=== PATIENT | male | born 1955 | race Caucasian/White ===

== ENCOUNTER 2021-09-05 05:04 | Observation (INO) ==
[2021-09-05] MEDS ORDERED: NITROGLYCERIN SL 0.4 MG/TAB TAB SL STA (05:20)
--- NOTE | 2021-09-05 05:26 | Emergency Department Note ---
Impression & Plan Left-sided chest pain ED Provider Note Name: LACY [id number] GAMALIEL Age: 65 Sex: M Arrives Via: Ambulance Informant: Patient, EMS ED Provider: Gareth Matos MD Chief Complaint: Left Chest Pain Impression: As per impressions above Medical Decision Makin-year-old prisoner arrives for evaluation of left-sided chest pain patient with extensive past medical history primarily of CVA and type 2 diabetes. He notes awakening with left-sided chest pain this morning and thus brought him to ER for evaluation he is uncomfortable with left-sided chest pain which has some vague tenderness to palpation and also he notes worse with deep inspiration. Initial EKG without acute ischemic findings due to some poor baseline this was repeated and is unremarkable. He was given sublingual nitro with rapid drop in his blood pressure to the 70s. Complaining of increasing shortness of breath at the same time now and worsening of his chest pain. Immediately started liter normal saline no blood pressure remains low patient continues to plan of worsening shortness of breath. In the setting of acute hypotension and worsening chest pain/shortness of breath I do feel the getting CTA is indicated especially given he has been sitting in a detention cell for the last week and a half. Fortunately CTA is without dissection or PE. Patient is allergic to aspirin and thus will hold off on giving him the standard 324 mg aspirin. Given his history of diabetes, CVA and what appears to be peripheral vascular disease I do feel the cardiac rule out would be indicated which a hospitalist was consulted for. Prior Medical Record and Triage/Nursing Notes reviewed by Me Additional history obtained from custodial records Differentials:Cardiac ischemia, aortic dissection, pulmonary embolism, pneumothorax, pneumonia, pericarditis, myocarditis, esophageal rupture, GERD, cholecystitis, pancreatitis, musculoskeletal, as well as other pathologies. Vital Signs: reviewed and remarkable for no significant abnormalities Interventions: Sublingual nitroglycerin, 1 L normal saline bolus, fentanyl 5 mcg IV Labs:Reviewed and remarkable for no significant abnormalities Imagin view chest x-ray reviewed by me without any acute findings. CTA of the chest as per radiologist read below EKG:Per My Interpretation: Indication Chest pain: NSR 65 bpm, qtc 459. No Ectopy. No Ischemia. No previous EKG for comparison Cardiac/Tele Monitoring: Cardiac Monitoring: An Order was placed for continuous cardiac monitoring. The monitor shows a rate of 65 with a normal sinus rhythm. Consults:Dr Richi Mattson Hospitalist Plan: Disposition:Hospitalization. Condition: Good History of Present Illness:69-year-old incarcerated male arrives for evaluation of chest pains. Patient states that he awoke around 3 AM with left-sided dull chest pain. He does state that the pain is worse with movement and palpation. He denies any shortness of breath, syncope, palpitations, lightheadedness. Jessenia ent states that pain radiates down the left arm to the elbow. Patient denies history of cardiac disease. He states he has had multiple strokes before. He does not take aspirin as he is allergic to it. He does have a history of type 2 diabetes, strokes and states he lost his left leg due to an infection after a fracture. Patient has had no medications prior to arrival. Patient does not know if he has previously had a cardiac work-up. Patient denies any abdominal pain, nausea, vomiting, back pain, headache, neck pain, shortness of breath, palpitations, syncope, leg swelling, calf pain, urinary symptoms, bowel symptoms, bleeding, bruising nor other symptoms. ROS: See above HPI for pertinent positives & negatives. A total of 10 systems reviewed and were otherwise negative. Past Medical History:Diabetes, CVA Past Surgical History:Left lower leg amputation Family History:States mother of NH around 60 years old Social History:Patient currently incarcerated at [facility] detention, denies tobacco use Home Medications:See Below Allergies:Penicillin, aspirin Vitals:Blood Pressure: 144/77, Pulse 67, RR 18, T 37.1C, O2 93% on RA Physical Exam: GENERAL: Patient is well appearing and in no acute distress. EYES: No scleral icterus, unremarkable pupils. ENT: Mucous membranes moist, no nasal congestion. NECK: No masses appreciated, nomeningismus, trachea is midline. CHEST: TTP over left lateral chest RESPIRATORY: No dyspnea. Clear to auscultation and equal bilaterally. No wheeze, no rhonchi. CARDIOVASCULAR: Regular rate and rhythm.No murmurs, rubs, gallops appreciated. GASTROINTESTINAL: Abdomen soft, non-tender, no peritonitis.Bowel sounds positive.No masses appreciated. BACK: No midline tenderness, no CVA tenderness EXTREMITIES: Left lower leg amputation below knee. Normal motion all extremities, no cyanosis, no edema. NEUROLOGIC: Alert and oriented, no acute motor or sensory deficits, no focal weakness, cranial nerves grossly intact. SKIN: No rash, no jaundice, no diaphoresis. PSYCH: Appropriate GCS: 15 ED Course: Times/Reassessments: Patient given sublingual nitro with resultant significant hypotension which improved with fluids and some time. He still had some left-s ided chest pain thus was given 50 mcg IV fentanyl and appeared much more comfortable. He is agreeable to hospitalization for cardiac rule out. Gareth Matos MD Past Med/Surg History Social History Smoking Status: Current every day smoker Tobacco Type: Cigarettes Feels Safe at Home: Yes Allergies Allergies Allergy/AdvReac Type Severity Reaction Status Date / Time aspirin AdvReac Unknown Unverified 09/05/21 08:10 Home Meds Home Medications Medication Instructions Recorded Confirmed No Known Home Medications 09/05/21 09/05/21 Results & Data (ED) Vital Signs Vital Signs - 24 hr 09/05/21 05:09 09/05/21 06:03 09/05/21 06:04 Temperature 37.1 C Temperature Source Oral Pulse Rate 67 Pulse Rate [Right Finger] 67 68 Respiratory Rate 18 18 18 Respiratory Effort / Characteristics Non-Labored Spontaneous Non-Labored Spontaneous Non-Labored Spontaneous Respiratory Depth Normal Normal Normal Respiratory Pattern Regular Regular Regular Blood Pressure 144/77 H Blood Pressure [Right Arm] 75/53 L 76/52 L Blood Pressure Mean 99 Blood Pressure Mean [Right Arm] 60 60 Blood Pressure Position Sitting Blood Pressure Position [Right Arm] Sitting Sitting Pulse Oximetry 93 95 93 Oxygen Delivery Method Room Air Room Air Room Air Oxygen Flow Rate 94 Sepsis Recent Fever Within 48 Hours No Sepsis New/Unexplained Change in Mental Status No Sepsis Action Taken by Nursing No Action Required 09/05/21 06:07 09/05/21 06:13 09/05/21 07:25 Temperature Temperature Source Pulse Rate Pulse Rate [Right Finger] 68 66 68 Respiratory Rate 18 18 28 H Respiratory Effort / Characteristics Non-Labored Spontaneous Non-Labored Spontaneous Non-Labored Respiratory Depth Normal Normal Normal Respiratory Pattern Regular Regular Blood Pressure Blood Pressure [Right Arm] 82/56 L 115/76 156/84 H Blood Pressure Mean Blood Pressure Mean [Right Arm] 64 89 108 Blood Pressure Position Blood Pressure Position [Right Arm] Sitting Lying Pulse Oximetry 94 96 98 Oxygen Delivery Method Room Air Room Air Room Air Oxygen Flow Rate Sepsis Recent Fever Within 48 Hours Sepsis New/Unexplained Change in Mental Status Sepsis Action Taken by Nursing Laboratory Data Result diagrams: 09/05/21 05:32 09/05/21 05:32 Lab Results 09/05/21 09/05/21 09/05/21 Range/Units 05:32 05:32 05:32 WBC 6.16 (4.8-10.8) K/uL RBC 4.88 (4.7-6.1) M/uL Hgb 14.1 (14.0-18.0) g/dL Hct 43.0 (42-52) % MCV 88.1 (80-100) fL MCH 28.9 (25-34) pg MCHC 32.8 (32-36) g/dL RDW Std Deviation 43.8 (36.4-46.3) fL RDW Coeff of Shavonne 13.5 (11.5-14.5) % Plt Count 281 (130-400) K/uL MPV 10.8 H (7.4-10.4) fL Immature Gran % (Auto) 0.0 % Neut % (Auto) 49.7 % Lymph % (Auto) 36.0 % Mclean % (Auto) 9.1 % Eos % (Auto) 4.9 % Baso % (Auto) 0.3 % Neut # (Auto) 3.06 (1.4-6.5) K/uL Lymph # (Auto) 2.22 (1.2-3.4) K/uL Mclean # (Auto) 0.56 (0.11-0.59) K/uL Eos # (Auto) 0.30 (0-0.5) K/uL Baso # (Auto) 0.02 (0-0.2) K/uL Immature Gran # (Auto) 0.00 (0.00-0.02) K/uL Sodium 137 (136-145) mmol/L Potassium 4.2 (3.5-5.1) mmol/L Chloride 102 (98-107) mmol/L Carbon Dioxide 29 (21-32) mmol/L Anion Gap 7.0 (3-11) BUN 20 H (7-18) mg/dl Creatinine 0.86 (0.6-1.4) mg/dl Est Cr Clr Drug Dosing 93.2 ml/min Est GFR ( Amer) 107.0 ml/min Est GFR (Non-Af Amer) 92.3 ml/min BUN/Creatinine Ratio 23.7 H (10-20) Glucose 250 H (70-99) mg/dl Calcium 9.0 (8.5-10.1) mg/dl Troponin I < 0.015 (0-0.045) ng/ml SARS-CoV-2, RNA, NAAT NEGATIVE (NEGATIVE) Administered Medications Discontinued Medications Fentanyl Citrate (Fentanyl Citrate 100 Mcg/2 Ml Vial) 50 mcg IV NOW STA Stop: 09/05/21 06:44 Last Admin: 09/05/21 06:49 Dose: 50 mcg Documented by: [id number] Sodium Chloride (Nss 1000ml) 1,000 mls @ 999 mls/hr IV .Q1H1M ONE Stop: 09/05/21 07:06 Last Infusion: 09/05/21 07:27 Dose: 0 mls/hr Documented by: [id number] Admin: 09/05/21 06:12 Dose: 999 mls/hr Documented by: [id number] Ioversol (Optiray 320 125ml) 120 ml IV ONCE ONE Stop: 09/05/21 06:54 Last Admin: 09/05/21 06:53 Dose: 120 ml Documented by: [id number] Nitroglycerin (Nitroglycerin Sl 0.4 Mg/Tab Tab) 0.4 mg SL NOW STA Stop: 09/05/21 05:21 Last Admin: 09/05/21 05:53 Dose: 0.4 mg Documented by: [id number] Imaging Data Radiologist's Impression: Chest X-Ray 09/05/21 05:20 XR chest 1V portable CLINICAL HISTORY: Left-sided chest pain. COMPARISON STUDY: No previous studies for comparison. FINDINGS: Lung volumes are normal. Lungs are clear. There is no pneumothorax or pleural effusion. Cardiac size is normal. Mediastinal contours are normal. There is no evidence for pulmonary edema. IMPRESSION: No acute cardiopulmonary findings. ACT 112: Negative or not required by law. Electronically signed by: Vic Florence M.D. 09/05/2021 6:52 AM Chest CTA 09/05/21 06:06 CHEST CTA for PULMONARY ARTERIES CT DOSE: 484.39 mGy.cm HISTORY: Atypical chest pain. Shortness of breath. TECHNIQUE: Multiaxial CT images of the chest were performed following the intravenous administration of contrast to evaluate the pulmonary arteries. Maximal intensity projection images were also obtained. A dose lowering t echnique was utilized adhering to the principles of ALARA. COMPARISON STUDY: None. FINDINGS: Nodular thickening of the bilateral adrenal glands most pronounced on the left which measures up to 1.3 cm in thickness. This could represent age- related adrenal hyperplasia or an underlying benign adenoma. Partially visualized 1.5 cm slightly hyperdense exophytic left renal lesion. This is indeterminate but favors a hyperdense cyst. A solid renal mass could also have a similar appearance. There are few small hypodense lesions within the liver with the majority measuring subcentimeter in short axis diameter and therefore too small to characterize. There is also a 1.8 cm hypodense lesion within the caudate lobe which may represent discontinuous peripheral nodular enhancement. Therefore, this favors a hemangioma but is incompletely characterized on this single phase study. Thyroid gland enhances normally. Scattered subcentimeter mediastinal and hilar lymph nodes do not meet CT criteria for pathologic involvement. Normal caliber esophagus. No pleural or pericardial effusions. The heart is borderline enlarged. Normal caliber thoracic aorta with no evidence for dissection. No filling defects within the pulmonary arteries to suggest a pulmonary embolus. No suspicious lytic or blastic osseous lesions. The central airways are patent. There is mild emphysema with a few scattered small bilateral blebs. The largest within the right lower lobe measures 2 cm. Mild dependent changes seen at the lung bases. Otherwise, no focal lung consolidations to suggest pneumonia. A 6 x 4 mm subpleural nodule along the right minor fissure on image 158. IMPRESSION: 1. No evidence for pulmonary embolus. 2. Mild emphysema. 3. No focal lung consolidations to suggest pneumonia. 4. A 6 x 4 mm subpleural nodule along the right minor fissure. This is likely benign. However, follow-up recommended as detailed below. 5. Partially visualized 1.5 cm slightly hyperdense exophytic left renal lesion. This favors a hyperdense cyst. A solid renal mass is considered less likely but not entirely excluded. Therefore, follow-up nonemergent renal ultrasound recommended for further evaluation. 6. Additional findings as described above. Please refer to below summary of Fleischner criteria recommendations for follow- up of incidental CT nodules (Kenny Hernandez, Guidelines for management of small pulmonary nodules detected on CT scans: A statement from the Fleischner Society, Radiology 237: [phone].) SOLID NODULES Solitary nodule size: <6 mm * Low risk patients: no follow-up needed * high risk patients: optional CT at 12 months Solitary nodule size: 6-8 mm * Low risk patients: follow-up at 6-12 months, then consider further follow-up at 18-24 months * high risk patients: initial follow-up CT at 6-12 months and then at 18-24 months if no change Solitary nodule size: >8 mm * either low or high risk patients - consider follow-up CT at 3 months, and/or CT-PET, and/or biopsy Multiple nodules size: <6 mm * Low risk patients: no routine follow-up * high risk patients: optional CT at 12 months Multiple nodules size: 6-8 mm * Low risk patients: follow-up at 3-6 months, then consider further follow-up at 18-24 months * high risk patients: follow-up at 3-6 months, then at 18-24 months if no change Multiple nodules size: >8 mm * Low risk patients: follow-up at 3-6 months, then consider further follow-up at 18-24 months * high risk patients: follow-up at 3-6 months, then at 18-24 months if no change Note: newly detected indeterminate nodule in persons 35 years of age or older. * Low risk patients: minimal or absent history of smoking and/or other known risk factors * high risk patients: history of smoking or of other known risk factors (e.g. first degree relative with lung cancer, or exposure to asbestos, radon, uranium) * if a nodule up to 8 mm is partly solid or is ground glass further follow-up is required after 24 months to exclude possible slow growing adenocarcinoma (PASTORA) SUBSOLID NODULES Solitary pure ground-glass nodule * nodule size <6 mm - no CT follow-up required * nodule size >=6 mm - follow-up CT at 6-12 months, then every 2 years until 5 years Solitary part-solid nodule * nodule size <6 mm - no CT follow-up required * nodule size >=6 mm - follow-up CT at 3-6 months. If unchanged, and solid component remains <6 mm, then annual follow-up for 5 years Multiple subsolid nodules * nodule size <6 mm - follow-up CT at 3-6 months, consider further follow-up at 2 and 4 years if stable * nodule size >=6 mm - follow-up CT at 3-6 months, subsequent management based on the most suspicious nodule(s) ACT 112: Positive. There are findings on this exam that require communication between the performing entity and the patient following Patient Test Result Information Act ([place] Act 112) guidelines. Electronically signed by: Froylan Sharpe M.D. 09/05/2021 7:46 AM Discharge Plan Visit Data Chief Complaint: Chest Pain Stated Complaint: CHEST PAIN, LEFT ARM PAIN ED Provider: Gareth Matos Discharge Problem: Left-sided chest pain Forms Stand Alone Forms: [facility] Prescriptions Prescriptions: No Action No Known Home Medications RF: 0 Referrals Referrals: [facility] [Primary Care Provider] -
[2021-09-05 05:49] LABS: Basophils # (auto) 0.02 K/uL (0-0.2); Basophils % (auto) 0.3 %; Eosinophils % (auto) 4.9 %; Hemoglobin 14.1 g/dL (14.0-18.0); Lymphocytes # (auto) 2.22 K/uL (1.2-3.4); Mean Corpuscular Hemoglobin 28.9 pg (25-34); Mean Corpuscular Hgb Conc 32.8 g/dL (32-36); Mean Corpuscular Volume 88.1 fL (80-100); Mean Platelet Volume 10.8 fL (7.4-10.4); Monocytes # (auto) 0.56 K/uL (0.11-0.59); Monocytes % (auto) 9.1 %; Neutrophils # (auto) 3.06 K/uL (1.4-6.5); Neutrophils % (auto) 49.7 %; Platelet Count 281 K/uL (130-400); RDW Coefficient of Variation 13.5 % (11.5-14.5); RDW Standard Deviation 43.8 fL (36.4-46.3); Red Blood Count 4.88 M/uL (4.7-6.1); White Blood Count 6.16 K/uL (4.8-10.8)
[2021-09-05] MEDS ORDERED: SODIUM CHLORIDE 0.9% 1000ML 1,000 ML IV ONE (06:06)
[2021-09-05 06:10] LABS: BUN Creatinine Ratio 23.7 (10-20); Blood Urea Nitrogen 20 mg/dl (7-18); Carbon Dioxide 29 mmol/L (21-32); Chloride 102 mmol/L (98-107); Creatinine Clr Calc Pharmacy 93.2 ml/min; Est GFR (Non-African American) 92.3 ml/min; Glucose 250 mg/dl (70-99); Potassium 4.2 mmol/L (3.5-5.1); Sodium 137 mmol/L (136-145)
[2021-09-05 06:15] LABS: Troponin I < 0.015 ng/ml (0-0.045)
[2021-09-05] MEDS ORDERED: fentaNYL citrate 100 MCG/2 ML VIAL IV STA (06:43)
[2021-09-05] MEDS ORDERED: OPTIRAY 320 125ml IV ONE (06:53)
--- NOTE | 2021-09-05 06:53 | XRay Report ---
XR chest 1V portable CLINICAL HISTORY: Left-sided chest pain. COMPARISON STUDY: No previous studies for comparison. FINDINGS: Lung volumes are normal. Lungs are clear. There is no pneumothorax or pleural effusion. Car diac size is normal. Mediastinal contours are normal. There is no evidence for pulmonary edema. IMPRESSION: No acute cardiopulmonary findings. ACT 112: Negative or not required by law. Electronically signed by: Vic Florence M.D. 09/05/2021 6:52 AM
--- NOTE | 2021-09-05 07:47 | CT Scan Report ---
CHEST CTA for PULMONARY ARTERIES CT DOSE: 484.39 mGy.cm HISTORY: Atypical chest pain. Shortness of breath. TECHNIQUE: Multiaxial CT images of the chest were performed following the intravenous administration of contrast to evaluate the pulmonary arteries. Maximal intensity projection images were also obtaine d. A dose lowering technique was utilized adhering to the principles of ALARA. COMPARISON STUDY: None. FINDINGS: Nodular thickening of the bilateral adrenal glands most pronounced on the left which measur es up to 1.3 cm in thickness. This could represent age-related adrenal hyperplasia or an underlying b enign adenoma. Partially visualized 1.5 cm slightly hyperdense exophytic left renal lesion. This is i ndeterminate but favors a hyperdense cyst. A solid renal mass could also have a similar appearance. T here are few small hypodense lesions within the liver with the majority measuring subcentimeter in sh ort axis diameter and therefore too small to characterize. There is also a 1.8 cm hypodense lesion wi thin the caudate lobe which may represent discontinuous peripheral nodular enhancement. Therefore, th is favors a hemangioma but is incompletely characterized on this single phase study. Thyroid gland en hances normally. Scattered subcentimeter mediastinal and hilar lymph nodes do not meet CT criteria fo r pathologic involvement. Normal caliber esophagus. No pleural or pericardial effusions. The heart is borderline enlarged. Normal caliber thoracic aorta with no evidence for dissection. No filling defec ts within the pulmonary arteries to suggest a pulmonary embolus. No suspicious lytic or blastic osseo us lesions. The central airways are patent. There is mild emphysema with a few scattered small bilate ral blebs. The largest within the right lower lobe measures 2 cm. Mild dependent changes seen at the lung bases. Otherwise, no focal lung consolidations to suggest pneumonia. A 6 x 4 mm subpleural nodul e along the right minor fissure on image 158. IMPRESSION: 1. No evidence for pulmonary embolus. 2. Mild emphysema. 3. No focal lung consolidations to suggest pneumonia. 4. A 6 x 4 mm subpleural nodule along the right minor fissure. This is likely benign. However, follow -up recommended as detailed below. 5. Partially visualized 1.5 cm slightly hyperdense exophytic left renal lesion. This favors a hyperde nse cyst. A solid renal mass is considered less likely but not entirely excluded. Therefore, follow-u p nonemergent renal ultrasound recommended for further evaluation. 6. Additional findings as described above. Please refer to below summary of Fleischner criteria recommendations for follow-up of incidental CT n odules (Kenny Hernandez, Guidelines for management of small pulmonary nodules detected on CT scans: A amilcar diaz from the Fleischner Society, Radiology 237: [phone].) SOLID NODULES Solitary nodule size: <6 mm * Low risk patients: no follow-up needed * high risk patients: optional CT at 12 months Solitary nodule size: 6-8 mm * Low risk patients: follow-up at 6-12 months, then consider further follow-up at 18-24 months * high risk patients: initial follow-up CT at 6-12 months and then at 18-24 months if no change Solitary nodule size: >8 mm * either low or high risk patients - consider follow-up CT at 3 months, and/or CT-PET, and/or biopsy Multiple nodules size: <6 mm * Low risk patients: no routine follow-up * high risk patients: optional CT at 12 months Multiple nodules size: 6-8 mm * Low risk patients: follow-up at 3-6 months, then consider further follow-up at 18-24 months * high risk patients: follow-up at 3-6 months, then at 18-24 months if no change Multiple nodules size: >8 mm * Low risk patients: follow-up at 3-6 months, then consider further follow-up at 18-24 months * high risk patients: follow-up at 3-6 months, then at 18-24 months if no change Note: newly detected indeterminate nodule in persons 35 years of age or older. * Low risk patients: minimal or absent history of smoking and/or other known risk factors * high risk patients: history of smoking or of other known risk factors (e.g. first degree relative with lung cancer, or exposure to asbestos, radon, uranium) * if a nodule up to 8 mm is partly solid or is ground glass further follow-up is required after 24 m onths to exclude possible slow growing adenocarcinoma (PASTORA) SUBSOLID NODULES Solitary pure ground-glass nodule * nodule size <6 mm - no CT follow-up required * nodule size >=6 mm - follow-up CT at 6-12 months, then every 2 years until 5 years Solitary part-solid nodule * nodule size <6 mm - no CT follow-up required * nodule size >=6 mm - follow-up CT at 3-6 months. If unchanged, and solid component remains <6 mm, then annual follow-up for 5 years Multiple subsolid nodules * nodule size <6 mm - follow-up CT at 3-6 months, consider further follow-up at 2 and 4 years if sta ble * nodule size >=6 mm - follow-up CT at 3-6 months, subsequent management based on the most suspiciou s nodule(s) ACT 112: Positive. There are findings on this exam that require communication between the performing entity and the patient following Patient Test Result Information Act ([place] Act 112) guidelines. Electronically signed by: Froylan Sharpe M.D. 09/05/2021 7:46 AM
--- NOTE | 2021-09-05 07:51 | Electrocardiogram Report ---
Test Reason : Blood Pressure : / mmHG Vent. Rate : 065 BPM Atrial Rate : 065 BPM P-R Int : 154 ms QRS Dur : 102 ms QT Int : 454 ms P-R-T Axes : 013 -62 -03 degrees QTc Int : 472 ms Normal sinus rhythm Left axis deviation Incomplete right bundle branch block Abnormal ECG No previous ECGs available Confirmed by Samuel Zamorano ([id number]) on 09/05/2021 7:51:08 AM Referred By: [facility] Confirmed By:Gabriel Zamorano
--- NOTE | 2021-09-05 07:52 | Electrocardiogram Report ---
Test Reason : Blood Pressure : / mmHG Vent. Rate : 065 BPM Atrial Rate : 065 BPM P-R Int : 150 ms QRS Dur : 102 ms QT Int : 442 ms P-R-T Axes : 024 -65 071 degrees QTc Int : 459 ms Normal sinus rhythm Left anterior fascicular block Abnormal ECG When compared with ECG of 05-SEP-2021 05:13, (unconfirmed) Non-specific change in ST segment in Inferior leads Confirmed by Samuel Zamorano ([id number]) on 09/05/2021 7:51:58 AM Referred By: [facility] Confirmed By:Gabriel Zamorano
--- NOTE | 2021-09-05 09:34 | History & Physical Report ---
Date of Service September 05, 2021 Assessment & Plan (1) Left-sided chest pain: Plan: 65 y/o male with atypical left-sided chest pain x 6 hours. Developed hypotension with nitro. - Admit to monitor on telemetry - Serial troponin - Repeat EKG prn change in chest pain - Check ECHO - Consult cardiology for additional recommendations (2) Cellulitis of left lower extremity: Plan: - Continue Bactrim as pt was taking prior to admission (3) Type 2 diabetes mellitus: Plan: - Accuchecks - Insulin sliding scale - A1c in AM - Currently NPO but once able to eat will give diabetic diet (4) GERD (gastroesophageal reflux disease): Plan: - Continue pantoprazole as taken prior to admission (5) Dyslipidemia: Plan: - Continue statin Plan: Pt seen and discussed with attending physician, Dr. Merida. Plan of care discussed and as outlined above. Christine Brandt PA-C History of Present Illness Chief Complaint: Chest Pain Primary Care Provider: [facility] This is a 65 y/o male with a PMH of insulin-requiring DM2, dyslipidemia, GERD, and prior left BKA who presented from [facility] earlier this morning with left-sided chest pain. The pt reports the abrupt onset of sharp left chest pain radiating through to his left scapula described as "like someone is punching me." He has some associated nausea and feels warm but no documented fevers. Denies cough, shortness of breathing, ANGUIANO or dizziness. He does not recall having this chest pain previously. He reports a stress test "many years ago" that he thinks was normal. He does not recall a prior cardiac cath. He denies prior hx of ND but does report multiple "mini-strokes" previously as well as a hx of Guthrie Palsy, though denies hx of Lyme Disease. He is currently on Bactrim due to a wound on the left BKA area where the prosthesis was rubbing. [facility] allowing [facility] to use a wheelchair instead of wearing the prosthesis, which pt reports is helping the area heal. Pt received sublingual nitro in the ED with subsequent hypotension (SBP in the 70s) - given IVF with stabilization of BP. History of aspirin allergy with unknown reaction so not given. Allergies Allergy/AdvReac Type Severity Reaction Status Date / Time Penicillins Allergy Unknown Verified 09/05/21 09:34 aspirin AdvReac Unknown Unverified 09/05/21 08:10 Home Medications Medication Instructions Recorded Confirmed Type albuterol sulfate 2.5 mg INHALATION QID PRN 09/05/21 09/05/21 History atorvastatin 40 mg tablet 40 mg PO DAILY 09/05/21 09/05/21 History insulin human U-100 NPH-regulr 18 unit SUBCUT BID 09/05/21 09/05/21 History 70-30 mix 100 unit/mL subcutaneous susp pantoprazole 40 mg tablet,delayed 40 mg PO DAILY 09/05/21 09/05/21 History release sulfamethoxazole 800 1 tab PO BID 09/05/21 09/05/21 History mg-trimethoprim 160 mg tablet (Bactrim DS) Past Med/Surg History Medical History (Updated 09/05/21 @ 09:44 by Dina Brandt PA-C) Dyslipidemia GERD (gastroesophageal reflux disease) Type 2 diabetes mellitus Surgical History (Updated 09/05/21 @ 09:28 by Dina Brandt PA-C) History of below knee amputation Social History Smoking Status: Current every day smoker Tobacco Type: Cigarettes Feels Safe at Home: Yes Review of Systems Review of Systems: All systems reviewed & are unremarkable except as noted in HPI & below Constitutional: + fatigue; no fever, no chills and no sweats Eyes: no worsening vision Ear, Nose, Mouth, Throat: no nasal congestion, no nasal discharge and no sore throat Respiratory: no cough, no dyspnea and no wheezing Cardiovascular: as per Subjective / HPI; no palpitations, no syncope and no edema Gastrointestinal: + nausea; no abdominal pain, no heartburn, no vomiting and no diarrhea/loose stools Genitourinary: no dysuria or no urinary frequency Musculoskeletal: as per Subjective / HPI Integumentary: wound left BKA Neurologic: no seizure-like activity, no dizziness and no headache(s) Physical Exam Constitutional: well developed and well nourished; no acute distress Eyes: PERRL, conjunctivae normal, anicteric sclerae ENMT: external ear and nose normal, oropharynx normal Neck: trachea midline Respiratory: no respiratory distress and does not use accessory muscles Auscultation: lungs clear to auscultation bilaterally; no rales, no rhonchi and no wheezes Cardiovascular: Rate/Rhythm: regular rate and regular rhythm Heart Sounds: no murmur Vessels: radial pulses present Extremities: no edema left chest wall with mild tenderness, left scapular area with moderate tenderness Gastrointestinal (Abdomen): Inspection/Auscultation: normal bowel sounds; abdomen not distended Percussion/Palpation: abdomen soft; abdomen nontender Musculoskeletal: Head/Neck/Chest: normocephalic, head atraumatic and neck supple Skin: left BKA site with band-aid C/D/I Neurologic: moves all extremities; no focal motor deficits Psychiatric: A+Ox3, euthymic affect Results & Data Results & Data ([facility]) Vital Signs (Past 12 Hours) Vital Signs Temp Pulse Pulse Resp BP BP Pulse Ox 09/05/21 07:25 68 28 H 156/84 H 98 09/05/21 06:13 66 18 115/76 96 09/05/21 06:07 68 18 82/56 L 94 09/05/21 06:04 68 18 76/52 L 93 09/05/21 06:03 67 18 75/53 L 95 09/05/21 05:09 37.1 C 67 18 144/77 H 93 Laboratory Results Laboratory Results - last 24 hr 09/05/21 09/05/21 09/05/21 05:32 05:32 05:32 WBC 6.16 RBC 4.88 Hgb 14.1 Hct 43.0 MCV 88.1 MCH 28.9 MCHC 32.8 RDW Std Deviation 43.8 RDW Coeff of Shavonne 13.5 Plt Count 281 MPV 10.8 H Immature Gran % (Auto) 0.0 Neut % (Auto) 49.7 Lymph % (Auto) 36.0 [place] % (Auto) 9.1 Eos % (Auto) 4.9 Baso % (Auto) 0.3 Neut # (Auto) 3.06 Lymph # (Auto) 2.22 [place] # (Auto) 0.56 Eos # (Auto) 0.30 Baso # (Auto) 0.02 Immature Gran # (Auto) 0.00 Sodium 137 Potassium 4.2 Chloride 102 Carbon Dioxide 29 Anion Gap 7.0 BUN 20 H Creatinine 0.86 Est Cr Clr Drug Dosing 93.2 Est GFR ( Amer) 107.0 Est GFR (Non-Af Amer) 92.3 BUN/Creatinine Ratio 23.7 H Glucose 250 H Calcium 9.0 Troponin I < 0.015 SARS-CoV-2, RNA, NAAT NEGATIVE Diagnostic Findings Chest X-ray 09/05/21 - IMPRESSION: No acute cardiopulmonary findings. Chest CTA 09/05/21 - IMPRESSION: 1. No evidence for pulmonary embolus. 2. Mild emphysema. 3. No focal lung consolidations to suggest pneumonia. 4. A 6 x 4 mm subpleural nodule along the right minor fissure. This is likely benign. However, follow-up recommended as detailed below. 5. Partially visualized 1.5 cm slightly hyperdense exophytic left renal lesion. This favors a hyperdense cyst. A solid renal mass is considered less likely but not entirely excluded. Therefore, follow-up nonemergent renal ultrasound recommended for further evaluation. 6. Additional findings as described above. Medications Administered Discontinued Medications Fentanyl Citrate (Fentanyl Citrate 100 Mcg/2 Ml Vial) 50 mcg IV NOW STA Stop: 09/05/21 06:44 Last Admin: 09/05/21 06:49 Dose: 50 mcg Documented by: [id number] Sodium Chloride (Nss 1000ml) 1,000 mls @ 999 mls/hr IV .Q1H1M ONE Stop: 09/05/21 07:06 Last Infusion: 09/05/21 07:27 Dose: 0 mls/hr Documented by: [id number] Admin: 09/05/21 06:12 Dose: 999 mls/hr Documented by: [id number] Ioversol (Optiray 320 125ml) 120 ml IV ONCE ONE Stop: 09/05/21 06:54 Last Admin: 09/05/21 06:53 Dose: 120 ml Documented by: [id number] Nitroglycerin (Nitroglycerin Sl 0.4 Mg/Tab Tab) 0.4 mg SL NOW STA Stop: 09/05/21 05:21 Last Admin: 09/05/21 05:53 Dose: 0.4 mg Documented by: [id number] Code Status & VTE Plan VTE Prophylaxis Plan VTE Prophylaxis will be ordered: Yes Supervising Physician Co-Signing Physician Notes Pt seen and examined by me, care coordinated with Christine Brandt pls see her note above for further detail. Pt is a 65 y/o male with insulin-requiring DM2, dyslipidemia, GERD, prior left BKA, ? hx of CVA who presents from [facility] with left-sided chest pain. Pain started about 3AM, and radiating to his left scapula. Pt received sublingual nitro in the ED with subsequent hypotension (SBP in the 70s) - given IVF with stabilization of BP. History of aspirin allergy with unknown reaction so not given. CXR negative. CTA negative for any acute process. Troponin x2 negative. Pt is laying in bed in NAD, hemodynamically stable at this time. He is alert and oriented and answering questions appropriately. Heart sounds regular and lung sounds clear to auscultation w/o any wheezing, rhonchi, crackles. Pain is reproducible. Pt is tender to palpation at left paraspinal muscle area more so than tender to palp. of left ribcage. Abdomen is soft, non tender, nondistended. BKA noted. Pt is moving extremities. Echo ordered and cardiology consult requested. Given tenderness to palpation at left scapula and left paraspinal muscle area, will also obtain dedicated XR of thoracic spine. Cont. to closely monitor on telemetry. Armen Merida MD
[2021-09-05] MEDS ORDERED: ACETAMINOPHEN 325 MG TAB ONE (11:34)
[2021-09-05] MEDS ORDERED: ACETAMINOPHEN 325 MG TAB PO PRN (13:58)
[2021-09-05] MEDS ORDERED: GLUCAGON FOR INJ 1 MG VIAL SQ PRN (13:58)
[2021-09-05] MEDS ORDERED: GLUCOSE 40% GEL 15 GM TUBE PO PRN (13:58)
[2021-09-05] MEDS ORDERED: DEXTROSE 50% 50 ML SYRINGE IV PRN (13:58)
[2021-09-05] MEDS ORDERED: CARBOHYDRATES FOR HYPOGLYCEMIA PO PRN (13:58)
[2021-09-05] MEDS ORDERED: GLUCOSE 10 TABS/TUBE PO PRN (13:58)
[2021-09-05] MEDS: INSULIN ASPART PER UNIT SC SCH ×3 (14:17→21:49)
[2021-09-05] MEDS: LIDOCAINE 5% 1 PATCH TD SCH (14:45)
[2021-09-05] MEDS: traMADol HCL 50 MG TABLET PO PRN ×2 (14:46→21:50)
--- NOTE | 2021-09-05 16:49 | Electrocardiogram Report ---
Test Reason : Blood Pressure : / mmHG Vent. Rate : 072 BPM Atrial Rate : 072 BPM P-R Int : 160 ms QRS Dur : 100 ms QT Int : 432 ms P-R-T Axes : 044 -64 064 degrees QTc Int : 473 ms Normal sinus rhythm Left axis deviation Low voltage QRS Incomplete right bundle branch block Poor R wave progression, consider anterior CT vs. lead placement vs. LVH Abnormal ECG When compared with ECG of 05-SEP-2021 05:42, Incomplete right bundle branch block is now Present Confirmed by Samuel Zamorano ([id number]) on 09/05/2021 4:49:20 PM Referred By: [facility] Confirmed By:Gabriel Zamorano
--- NOTE | 2021-09-05 20:41 | XRay Report ---
THORACIC SPINE 3 VIEWS CLINICAL HISTORY: Thoracic back pain. FINDINGS: AP, lateral, and swimmer's views of the thoracic spine are correlated with chest CT perform ed the same day 09/05/2021. The skeletal structures are well mineralized. There is no evidence of fra cture or malalignment involving the thoracic spine. Vertebral body height and alignment are maintaine d. Anterior osteophytes are seen throughout. Mild spondylotic change is noted in the lower cervical r egion. The disc spaces appear maintained. Small anterior and lateral marginal osteophytes are seen th roughout. The transverse processes and pedicles are grossly intact as seen on the frontal view. The l thania parenchyma is clear as imaged. IMPRESSION: No acute bony abnormality is identified. Electronically signed by: Jaime Montano M.D. 09/05/2021 8:39 PM
[2021-09-05] MEDS: SULFAMETHOXAZOLE/TRIMETHOPRIM DS 800/160MG TAB PO SCH (21:50)
[2021-09-06 05:11] LABS: Hematocrit (blood only) 41.9 % (42-52); Hemoglobin 13.6 g/dL (14.0-18.0); Mean Corpuscular Hemoglobin 28.9 pg (25-34); Mean Corpuscular Hgb Conc 32.5 g/dL (32-36); Mean Platelet Volume 10.5 fL (7.4-10.4); Platelet Count 280 K/uL (130-400); RDW Coefficient of Variation 13.4 % (11.5-14.5); RDW Standard Deviation 44.3 fL (36.4-46.3); Red Blood Count 4.71 M/uL (4.7-6.1); White Blood Count 6.52 K/uL (4.8-10.8)
[2021-09-06 06:09] LABS: BUN Creatinine Ratio 23.5 (10-20); Calcium 9.3 mg/dl (8.5-10.1); Creatinine Clr Calc Pharmacy 73.5 ml/min; Est GFR (African American) 83.3 ml/min; Est GFR (Non-African American) 71.9 ml/min; Magnesium 2.4 mg/dl (1.8-2.4); Phosphorus 3.5 mg/dl (2.5-4.9)
[2021-09-06 06:24] LABS: Beta-Hydroxybutyrate 1.27 mg/dl (0.2-2.81)
[2021-09-06 07:12] LABS: Estimated Average Glucose 306 mg/dl; Hemoglobin A1C 12.3 % (4.5-5.6)
[2021-09-06] MEDS ORDERED: PANTOprazole 40 MG TAB PO SCH (09:00)
[2021-09-06] MEDS ORDERED: ENOXAPARIN INJ 40 MG/0.4 ML SYR SQ SCH (09:00)
[2021-09-06] MEDS ORDERED: ATORVASTATIN 40 MG TAB PO SCH (09:00)
[2021-09-06] MEDS: SULFAMETHOXAZOLE/TRIMETHOPRIM DS 800/160MG TAB PO SCH (09:12)
[2021-09-06] MEDS: LIDOCAINE 5% 1 PATCH TD SCH (09:14)
[2021-09-06] MEDS ORDERED: METOPROLOL TARTRATE 1 MG/ML VIAL IV ONE (09:16)
[2021-09-06] MEDS ORDERED: DOBUTamine HCL 12.5 MG/ML 20 ML VIAL IV ONE (09:16)
[2021-09-06] MEDS ORDERED: ATROPINE SULFATE 0.1 MG/ML 10ML SYR IV ONE (09:16)
[2021-09-06] MEDS: INSULIN ASPART PER UNIT SC SCH ×2 (09:30→14:15)
--- NOTE | 2021-09-06 10:51 | Cardiology Consultation ---
Date of Consultation September 06, 2021 Assessment & Plan (1) Left-sided chest pain: (2) Type 2 diabetes mellitus: (3) Dyslipidemia: (4) GERD (gastroesophageal reflux disease): The patient's ischemic work-up was unremarkable including dobutamine stress echocardiogram. No cardiac source for chest discomfort found, likely musculoskeletal in nature. No further cardiac testing intervention necessary at this time. Okay to discharge from a cardiac standpoint. History of Present Illness Reason for Consultation: Chest pain Requesting Physician: [facility] hospitalist group Attending Physician: Ciara Harrison DO History of Present Illness Mr. Truong is a 65-year-old incarcerated male who presented to [facility] on 2021-09-05 with complaints of chest pain. He states he was normal state of health when he suddenly had chest pain wake him up in the middle the night. He describes a sharp stabbing sensation that radiated from his right precordium straight through to his back. He states it was worse with movement and he cannot find a comfortable position to laying. It was associated some shortness of breath but he denied any associated palpitations, diaphoresis, nausea or lightheadedness. Upon arrival to emergency department his initial work-up was unremarkable. Allergies Allergy/AdvReac Type Severity Reaction Status Date / Time Penicillins Allergy Unknown Verified 09/05/21 09:34 aspirin AdvReac Unknown Unverified 09/05/21 08:10 Home Medications Medication Instructions Recorded Confirmed Type albuterol sulfate 2.5 mg INHALATION QID PRN 09/05/21 09/05/21 History atorvastatin 40 mg tablet 40 mg PO DAILY 09/05/21 09/05/21 History insulin human U-100 NPH-regulr 18 unit SUBCUT BID 09/05/21 09/05/21 History 70-30 mix 100 unit/mL subcutaneous susp pantoprazole 40 mg tablet,delayed 40 mg PO DAILY 09/05/21 09/05/21 History release sulfamethoxazole 800 1 tab PO BID 09/05/21 09/05/21 History mg-trimethoprim 160 mg tablet (Bactrim DS) Patient History Medical History Dyslipidemia GERD (gastroesophageal reflux disease) Type 2 diabetes mellitus Surgical History History of below knee amputation Social History Smoking Status: Current every day smoker Tobacco Type: Cigarettes Hx Alcohol Use: No Hx Substance Use: No Preferred Language: Niuean Communication Ability: Effective Deck Cadet Required: No Beliefs That Will Affect Care: None Current Living Situation: Other Current Living Situation Comment: [facility] Feels Safe at Home: Yes Safety Concerns: Feels Safe At This Time Assistive Devices: Wheelchair Review of Systems Review of Systems: All systems reviewed & are unremarkable except as noted in HPI & below Physical Exam Physical Exam: General: Awake, alert and oriented x 3. No acute distress. HEENT: Normocephalic, atraumatic. Pupils equal, round and reactive to light and accommodation. Extraocular muscles are intact. Anicteric sclera. Moist mucous membranes. Neck: No JVD. No bruit. Cardiovascular: Regular. Positive S-4. Normal S-1 and S-2. No S-3. No murmurs or rubs. Pulmonary: Clear to auscultation B/L. No rales, rhonchi or wheezing Abdomen: Bowel sounds x 4, soft. No rebound, guarding or tenderness. No or ganomegaly. Extremities: No clubbing, cyanosis or edema. +2 pedal pulses bilaterally. Skin: Warm and dry. Results & Data ([facility]) Vital Signs (Past 12 Hours) Vital Signs Temp Pulse Resp BP Pulse Ox 09/06/21 08:19 36.6 C 76 20 113/73 96 09/06/21 07:30 37 C 66 16 106/65 96 09/06/21 07:00 61 14 106/65 96 09/06/21 02:00 60 17 116/72 92
[2021-09-06] MEDS ORDERED: NovoLIN-N (NPH) PER UNIT CHARGE SQ ONE (11:30)
--- NOTE | 2021-09-06 12:25 | Discharge Summary ---
Date of Service September 06, 2021 Admission HPI Per Admitting Provider This is a 65 y/o male with a PMH of insulin-requiring DM2, dyslipidemia, GERD, and prior left BKA who presented from [facility] earlier this morning with left-sided chest pain. The pt reports the abrupt onset of sharp left chest pain radiating through to his left scapula described as "like someone is punching me." He has some associated nausea and feels warm but no documented fevers. Denies cough, shortness of breathing, ANGUIANO or dizziness. He does not recall having this chest pain previously. He reports a stress test "many years ago" that he thinks was normal. He does not recall a prior cardiac cath. He denies prior hx of IN but does report multiple "mini-strokes" previously as well as a hx of [place] Palsy, though denies hx of Lyme Disease. He is currently on Bactrim due to a wound on the left BKA area where the prosthesis was rubbing. The nursing home has been allowing him to use a wheelchair instead of wearing the prosthesis, which pt reports is helping the area heal. Pt received sublingual nitro in the ED with subsequent hypotension (SBP in the 70s) - given IVF with stabilization of BP. History of aspirin allergy with unknown reaction so not given. Admission Exam Per Admitting Provider Constitutional: well developed and well nourished; no acute distress Eyes: PERRL, conjunctivae normal, anicteric sclerae ENMT: external ear and nose normal, oropharynx normal Neck: trachea midline Respiratory: no respiratory distress and does not use accessory muscles Auscultation: lungs clear to auscultation bilaterally; no rales, no rhonchi and no wheezes Cardiovascular: Rate/Rhythm: regular rate and regular rhythm Heart Sounds: no murmur Vessels: radial pulses present Extremities: no edema left chest wall with mild tenderness, left scapular area with moderate tenderness Gastrointestinal (Abdomen): Inspection/Auscultation: normal bowel sounds; abdomen not distended Percussion/Palpation: abdomen soft; abdomen nontender Musculoskeletal: Head/Neck/Chest: normocephalic, head atraumatic and neck supple Skin: left BKA site with band-aid C/D/I Neurologic: moves all extremities; no focal motor deficits Psychiatric: A+Ox3, euthymic affect Principal Diagnosis Atypical chest pain, likely musculoskeletal 6 x 4 mm subpleural nodule, follow-up recommended 1.5cm left renal lesion, follow-up recommended Discharge Exam CONSTITUTIONAL: WNWD, vitals as above, generally well-appearing, NAD EYES: normal conjunctivae, no scleral icterus ENT: external ear and nose normal, MMM NECK: trachea midline RESPIRATORY: clear to auscultation bilaterally, no crackles, rales or wheezes, normal respiratory effort CARDIOVASCULAR: regular rate and rhythm, S1 and 2 heard without murmurs, gallops or rubs, no JVD, no peripheral edema CHEST: exquisite tenderness to palpation of left anterior chest wall, ronald along musculature left sternal border and also posterior back along thoracic paraspinal musculature. GASTROINTESTINAL: soft, nontender, ND MUSCULOSKELETAL: strength 5/5 throughout, head is normocephalic and atraumatic, TTP along chest and back as noted above. S/P above the knee amputation of LLE with quarter sized wound covered with clean, dry bandage. No surrounding erythema present. SKIN: warm and dry, wound as above. NEUROLOGIC: CN 2-12 grossly intact, no sensory deficit, normal cognition, normal speech, no tremor, no gross focal deficits. PSYCHIATRIC: alert cooperative and oriented to person, place and time. Discharge Data Allergies Allergy/AdvReac Type Severity Reaction Status Date / Time Penicillins Allergy Unknown Verified 09/05/21 09:34 aspirin AdvReac Unknown Unverified 09/05/21 08:10 Consultations 09/05/21 07:33 ED Decision to Admit Stat 09/05/21 09:17 Consult Cardiology Routine Ordered Studies Laboratory Results WBC 6.52 K/uL (4.8-10.8) 09/06/21 04:41 RBC 4.71 M/uL (4.7-6.1) 09/06/21 04:41 Hgb 13.6 g/dL (14.0-18.0) L 09/06/21 04:41 Hct 41.9 % (42-52) L 09/06/21 04:41 MCV 89.0 fL (80-100) 09/06/21 04:41 MCH 28.9 pg (25-34) 09/06/21 04:41 MCHC 32.5 g/dL (32-36) 09/06/21 04:41 RDW Std Deviation 44.3 fL (36.4-46.3) 09/06/21 04:41 RDW Coeff of Shavonne 13.4 % (11.5-14.5) 09/06/21 04:41 Plt Count 280 K/uL (130-400) 09/06/21 04:41 MPV 10.5 fL (7.4-10.4) H 09/06/21 04:41 Immature Gran % (Auto) 0.0 % 09/05/21 05:32 Neut % (Auto) 49.7 % 09/05/21 05:32 Lymph % (Auto) 36.0 % 09/05/21 05:32 [place] % (Auto) 9.1 % 09/05/21 05:32 Eos % (Auto) 4.9 % 09/05/21 05:32 Baso % (Auto) 0.3 % 09/05/21 05:32 Neut # (Auto) 3.06 K/uL (1.4-6.5) 09/05/21 05:32 Lymph # (Auto) 2.22 K/uL (1.2-3.4) 09/05/21 05:32 [place] # (Auto) 0.56 K/uL (0.11-0.59) 09/05/21 05:32 Eos # (Auto) 0.30 K/uL (0-0.5) 09/05/21 05:32 Baso # (Auto) 0.02 K/uL (0-0.2) 09/05/21 05:32 Immature Gran # (Auto) 0.00 K/uL (0.00-0.02) 09/05/21 05:32 Sodium 136 mmol/L (136-145) 09/06/21 04:41 Potassium 5.0 mmol/L (3.5-5.1) D 09/06/21 04:41 Chloride 101 mmol/L (98-107) 09/06/21 04:41 Carbon Dioxide 28 mmol/L (21-32) 09/06/21 04:41 Anion Gap 7.0 (3-11) 09/06/21 04:41 BUN 26 mg/dl (7-18) H 09/06/21 04:41 Creatinine 1.09 mg/dl (0.6-1.4) 09/06/21 04:41 Est Cr Clr Drug Dosing 73.5 ml/min 09/06/21 04:41 Est GFR ( Amer) 83.3 ml/min 09/06/21 04:41 Est GFR (Non-Af Amer) 71.9 ml/min 09/06/21 04:41 BUN/Creatinine Ratio 23.5 (10-20) H 09/06/21 04:41 Glucose 349 mg/dl (70-99) H* 09/06/21 04:41 POC Glucose 307 mg/dl (70-99) H* 09/06/21 08:00 Estimat Average Glucose 306 mg/dl 09/06/21 04:41 Hemoglobin A1c 12.3 % (4.5-5.6) H 09/06/21 04:41 Calcium 9.3 mg/dl (8.5-10.1) 09/06/21 04:41 Phosphorus 3.5 mg/dl (2.5-4.9) 09/06/21 04:41 Magnesium 2.4 mg/dl (1.8-2.4) 09/06/21 04:41 Troponin I < 0.015 ng/ml (0-0.045) 09/05/21 17:45 Beta-Hydroxybutyric Acd 1.27 mg/dl (0.2-2.81) 09/06/21 04:41 SARS-CoV-2, RNA, NAAT NEGATIVE (NEGATIVE) 09/05/21 05:32 Impressions Chest X-Ray 09/05/21 05:20 XR chest 1V portable CLINICAL HISTORY: Left-sided chest pain. COMPARISON STUDY: No previous studies for comparison. FINDINGS: Lung volumes are normal. Lungs are clear. There is no pneumothorax or pleural effusion. Cardiac size is normal. Mediastinal contours are normal. There is no evidence for pulmonary edema. IMPRESSION: No acute cardiopulmonary findings. ACT 112: Negative or not required by law. Electronically signed by: Vic Florence M.D. 09/05/2021 6:52 AM Chest CTA 09/05/21 06:06 CHEST CTA for PULMONARY ARTERIES CT DOSE: 484.39 mGy.cm HISTORY: Atypical chest pain. Shortness of breath. TECHNIQUE: Multiaxial CT images of the chest were performed following the intravenous administration of contrast to evaluate the pulmonary arteries. Maximal intensity projection images were also obtained. A dose lowering technique was utilized adhering to the principles of ALARA. COMPARISON STUDY: None. FINDINGS: Nodular thickening of the bilateral adrenal glands most pronounced on the left which measures up to 1.3 cm in thickness. This could represent age- related adrenal hyperplasia or an underlying benign adenoma. Partially visualized 1.5 cm slightly hyperdense exophytic left renal lesion. This is indeterminate but favors a hyperdense cyst. A solid renal mass could also have a similar appearance. There are few small hypodense lesions within the liver with the majority measuring subcentimeter in short axis diameter and therefore too small to characterize. There is also a 1.8 cm hypodense lesion within the caudate lobe which may represent discontinuous peripheral nodular enhancement. Therefore, this favors a hemangioma but is incompletely characterized on this single phase study. Thyroid gland enhances normally. Scattered subcentimeter mediastinal and hilar lymph nodes do not meet CT criteria for pathologic involvement. Normal caliber esophagus. No pleural or pericardial effusions. The heart is borderline enlarged. Normal caliber thoracic aorta with no evidence for dissection. No filling defects within the pulmonary arteries to suggest a pulmonary embolus. No suspicious lytic or blastic osseous lesions. The central airways are patent. There is mild emphysema with a few scattered small bilateral blebs. The largest within the right lower lobe measures 2 cm. Mild dependent changes seen at the lung bases. Otherwise, no focal lung consolidations to suggest pneumonia. A 6 x 4 mm subpleural nodule along the right minor fissure on image 158. IMPRESSION: 1. No evidence for pulmonary embolus. 2. Mild emphysema. 3. No focal lung consolidations to suggest pneumonia. 4. A 6 x 4 mm subpleural nodule along the right minor fissure. This is likely benign. However, follow-up recommended as detailed below. 5. Partially visualized 1.5 cm slightly hyperdense exophytic left renal lesion. This favors a hyperdense cyst. A solid renal mass is considered less likely but not entirely excluded. Therefore, follow-up nonemergent renal ultrasound recommended for further evaluation. 6. Additional findings as described above. Please refer to below summary of Fleischner criteria recommendations for follow- up of incidental CT nodules (Kenny Hernandez, Guidelines for management of small pulmonary nodules detected on CT scans: A statement from the Fleischner Society, Radiology 237: [phone].) SOLID NODULES Solitary nodule size: <6 mm * Low risk patients: no follow-up needed * high risk patients: optional CT at 12 months Solitary nodule size: 6-8 mm * Low risk patients: follow-up at 6-12 months, then consider further follow-up at 18-24 months * high risk patients: initial follow-up CT at 6-12 months and then at 18-24 months if no change Solitary nodule size: >8 mm * either low or high risk patients - consider follow-up CT at 3 months, and/or CT-PET, and/or biopsy Multiple nodules size: <6 mm * Low risk patients: no routine follow-up * high risk patients: optional CT at 12 months Multiple nodules size: 6-8 mm * Low risk patients: follow-up at 3-6 months, then consider further follow-up at 18-24 months * high risk patients: follow-up at 3-6 months, then at 18-24 months if no change Multiple nodules size: >8 mm * Low risk patients: follow-up at 3-6 months, then consider further follow-up at 18-24 months * high risk patients: follow-up at 3-6 months, then at 18-24 months if no change Note: newly detected indeterminate nodule in persons 35 years of age or older. * Low risk patients: minimal or absent history of smoking and/or other known risk factors * high risk patients: history of smoking or of other known risk factors (e.g. first degree relative with lung cancer, or exposure to asbestos, radon, uranium) * if a nodule up to 8 mm is partly solid or is ground glass further follow-up is required after 24 months to exclude possible slow growing adenocarcinoma (PASTORA) SUBSOLID NODULES Solitary pure ground-glass nodule * nodule size <6 mm - no CT follow-up required * nodule size >=6 mm - follow-up CT at 6-12 months, then every 2 years until 5 years Solitary part-solid nodule * nodule size <6 mm - no CT follow-up required * nodule size >=6 mm - follow-up CT at 3-6 months. If unchanged, and solid component remains <6 mm, then annual follow-up for 5 years Multiple subsolid nodules * nodule size <6 mm - follow-up CT at 3-6 months, consider further follow-up at 2 and 4 years if stable * nodule size >=6 mm - follow-up CT at 3-6 months, subsequent management based on the most suspicious nodule(s) ACT 112: Positive. There are findings on this exam that require communication between the performing entity and the patient following Patient Test Result Information Act ([place] Act 112) guidelines. Electronically signed by: Froylan Sharpe M.D. 09/05/2021 7:46 AM Thoracic Spine X-Ray 09/05/21 19:08 THORACIC SPINE 3 VIEWS CLINICAL HISTORY: Thoracic back pain. FINDINGS: AP, lateral, and swimmer's views of the thoracic spine are correlated with chest CT performed the same day 09/05/2021. The skeletal structures are well mineralized. There is no evidence of fracture or malalignment involving the thoracic spine. Vertebral body height and alignment are maintained. Anterior osteophytes are seen throughout. Mild spondylotic change is noted in the lower cervical region. The disc spaces appear maintained. Small anterior and lateral marginal osteophytes are seen throughout. The transverse processes and pedicles are grossly intact as seen on the frontal view. The lung parenchyma is clear as imaged. IMPRESSION: No acute bony abnormality is identified. Electronically signed by: Jaime Montano M.D. 09/05/2021 8:39 PM Hospital Course (1) Left-sided chest pain: (2) Cellulitis of left lower extremity: (3) Type 2 diabetes mellitus: (4) Pulmonary nodule: (5) Renal lesion: 65-year-old incarcerated male presented to [facility] with reports of chest pain x2 days. He has been treated with Bactrim for a residual limb left cellulitis. He reports utilizing his prosthesis which is ill fitting with subsequent wound development. This is currently covered with a clean dry bandage. He has been utilizing a self-propelled wheelchair instead for the last 2 to 3 days. As a result this chest pain has developed which he described initially as intermittent, now constant, no known precipitating factors and sharp like a knife. He was admitted to the medicine service and monitored on telemetry. ACS was ruled out with 3 - serial troponins overnight. Serial EKG did not reveal evidence of ischemia despite ongoing pain. An echocardiogram revealed normal LV systolic function with an EF of 60 to 65%, no significant valvular pathology and grade 1 diastolic dysfunction. No segmental left ventricular wall motion abnormalities were noted. On 09/06 he underwent a dobutamine stress test that did not reveal ischemia. Physical exam revealed significant pain to palpation in the left pectoralis muscle especially along the left sternal border and along the posterior left upper back and paraspinal thoracic areas. This is consistent with new use of self-propelled wheelchair and chest pain is likely musculoskeletal in nature. Ibuprofen was given at discharge to use as needed for pain. Daily stretching was recommended and gradual use of self-propelled wheelchair with assistance from staff as available. Follow-up with primary care doctor within 1 to 2 weeks for ongoing evaluation of chest pain and further evaluation of lung nodule and new renal mass that was found on imaging while hospitalized. Total Time Total Time Spent Total Time Spent (In Minutes): 60 Discharge Plan Discharge Items [facility] Reason For Visit: CHEST PAIN Discharge Diagnosis: Atypical chest pain, likely musculoskeletal 6 x 4 mm subpleural nodule, follow-up recommended 1.5cm left renal lesion, follow-up recommended Condition on Discharge: Good Activity: Resume your previous activity Non-emergency contact: Primary Care Provider Call non-emergency contact if: you have any medication questions, your symptoms worsen, your pain is not controlled, your pain is worsening, your pain is unusual for you and your pain is concerning for you Follow-up/Referrals: [facility] [Primary Care Provider] - Diet: Carb Consistent or DM2 Addtl Attending Provider Instructions: Please take all medications as instructed on discharge list below. You underwent evaluation for chest pain, which appears to be muscular in nature. Please take it easy and stretch daily, especially while using your self- propelled wheelchair. It is ok to use ibuprofen, which you said you were able to take. However, as your chart reflects an allergy to aspirin, scheduled high dose Tylenol is recommended instead. Please take 1000mg every 8 hours for the next 5 days to help with the pain. It is recommended that you are evaluated by your primary care provider within 1- 2 weeks to ensure your pain is improved. Follow-up imaging of your lung nodule and kidney lesion is recommended, which may be ordered by your outpatient provider. It was a pleasure taking care of you! Please call if you have any questions or problems. You can reach a [facility] hospitalist on duty at [facility] 24 hours a day by calling [phone]. Take care of yourself. Ciara Harrison, [facility] Hospitalist Pending Studies at Discharge: No Skilled Items Patient informed of condition?: Yes DNR: No Discharge Level of Care: Skilled Communicable Disease: No Discharge Prognosis: Stable Lines: None Urinary Catheter: No Medications and DC Order Prescriptions: New acetaminophen 500 mg capsule 1,000 mg PO Q8H Qty: 30 RF: 0 Continued atorvastatin 40 mg Tablet 40 mg PO DAILY RF: 0 albuterol sulfate 2.5 mg /3 mL (0.083 %) Solution For Nebulization 2.5 mg INHALATION QID PRN (Reason: Shortness Of Breath) RF: 0 insulin NPH and regular human 100 unit/mL (70-30) Suspension 18 unit SUBCUT BID RF: 0 sulfamethoxazole-trimethoprim [Bactrim DS] 800-160 mg Tablet 1 tab PO BID RF: 0 pantoprazole 40 mg Tablet,Delayed Release (Dr/Ec) 40 mg PO DAILY RF: 0 Admission Data Admit Date/Time: 09/05/21 09:17 Attending Provider: Ciara Harrison Admit Provider: Henrik Merida Primary Care Provider: [facility] Other Providers: Lee Montenegro ; Henrik Merida
--- NOTE | 2021-09-06 17:49 | Electrocardiogram Report ---
Test Reason : Blood Pressure : / mmHG Vent. Rate : 060 BPM Atrial Rate : 060 BPM P-R Int : 158 ms QRS Dur : 104 ms QT Int : 472 ms P-R-T Axes : 028 -56 051 degrees QTc Int : 472 ms Normal sinus rhythm Left axis deviation Abnormal ECG When compared with ECG of 05-SEP-2021 14:27, Incomplete right bundle branch block is no longer Present Confirmed by Samuel Zamorano ([id number]) on 09/06/2021 5:48:47 PM Referred By: [facility] Confirmed By:Gabriel Zamorano
== END 2021-09-06 14:17 ==
LOC: ED 05:04 → EDINP 05:04 → SUATTDRO 09:17 → EDINP 14:02